=== PATIENT | female | born 1960 | race Caucasian/White ===

== ENCOUNTER 2019-03-02 05:29 | Day surgery (SDC) | payer OTHER ==
--- NOTE | 2019-03-01 16:39 | GHP ---
[f rep st] PRE-OP HISTORY AND PHYSICAL The patient presented to [facility] initially back in 2005 with bilateral bunion deformities. She has had a bunion correction done previously on her left foot and has developed a severe bunion deformity on the right foot and wants this taken care of, along with a crossover 2nd hammertoe. She is generally in very good health. 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 Currently she is ___58 years of age. She is fully ambulatory. She does have hemochromatosis. Enjoys cycling, walking for exercise. The toe has gotten severely painful on that right side wanted it taken care of on a permanent basis. We have tried orthotics, change in shoes, decreased activity, all of which have helped her for over the years, but at this point, her goal is to retire and live an active lifestyle after her senior care. PAST MEDICAL HISTORY: Significant for the hemochromatosis. ALLERGIES: She cannot do iron, Vicodin causes nausea. Outside of that, no other drug allergies. SOCIAL HISTORY: She has been a tobacco user/smoker. She denies excessive alcohol use. FAMILY HISTORY: No family history of unusual health problems. A positive family history of bunion deformity, maternal side. PAST SURGICAL HISTORY: She has had fibroid tumor removed, bunion surgery on the left without complication or problems to anesthesia. At this point, she wants a similar procedure done on the right. At her preop appointment, we discussed her condition in detail. PHYSICAL EXAM: She had normal vascular status 2/4 dorsal and posterior tibial arteries. Capillary fill less than 5 seconds to digits x10. Neurologic evaluation sharp, dull, light touch proprioception all intact and symmetric to the digital level. Skin shows normal temperature texture turgor. Normal hair distribution with pinch callusing on the medial aspect of the right great toe, consistent with a bunion deformity. She has a medially deviated 1st metatarsal , laterally deviated hallux with a significant crepitation and pain when placed in a corrected position on her right great toe joint. She has a subluxed 2nd metatarsophalangeal joint which is manually reducible, consistent with a hammer digit deformity on the 2nd toe on the right. X-RAYS: Were taken, show severe metatarsus adductus with hallux valgus deformity and hammertoe 2nd cross over, all right foot. The concern here is with the met adductus, we can only correct it so far. She understands that with the C-shaped foot that she has, that the bunion correction will definitely realign the great toe and help with the function better, but with all her metatarsals abducted dramatically, we can only close the intermetatarsal angle so far. She understands her mechanics. ASSESSMENT: Hallux valgus deformity right with hammertoe 2nd right. PLANNED PROCEDURE: 1. Modified Knutson bunionectomy with osteotomy screw fixation. 2. Guanako osteotomy screw fixation. 3. Modified post arthroplasty with extensor tendon lengthening, 2nd toe. At her preop appointment, we discussed risks and complications including residual pain, delayed healing. Patient understood, consent form was signed. She was given both oral and written postop instructions along with a prescription for pain medication. She was given my cell phone number for 24-hour call should she have any problems or questions and she will be followed up x3 days postop at [facility]. /[id number]/MODL MTDD
[2019-03-02] MEDS ORDERED: LIDOCAINE 1% 2 ML INJ ID PRN (06:06)
[2019-03-02] MEDS ORDERED: LR 1,000 ML IV ONE (06:06)
[2019-03-02] MEDS ORDERED: LIDOCAINE 1% 2 ML INJ ONE (06:26)
--- NOTE | 2019-03-02 06:52 | PDANEPAE ---
ANE Past Medical History - Cardiovascular History Hx Hypertension: No Hx Arrhythmias: No Hx Chest Pain: No Hx Coronary Artery / Peripheral Vascular Disease: No Hx CHF / Valvular Disease: No Hx Palpitations: No - Pulmonary History Hx COPD: No Hx Asthma/Reactive Airway Disease: No Hx Recent Upper Respiratory Infection: No Hx Oxygen in Use at Home: No Hx Sleep Apnea: No Sleep Apnea Screening Result - Last Documented: Negative - Neurologic History Hx Cerebrovascular Accident: No Hx Seizures: No Hx Dementia: No - Endocrine History Hx Diabetes: No - Renal History Hx Renal Disorders: No - Liver History Hx Hepatic Disorders: No - Neurological & Psychiatric Hx Hx Neurological and Psychiatric Disorders: No - Cancer History Hx Cancer: No - Congenital Disorder History Hx Congenital Disorders: No - GI History Hx Gastrointestinal Disorders: No - Other Health History Other Health History: NONE - Chronic Pain History Chronic Pain: Yes (RT FOOT) - Surgical History Prior Surgeries: LT BUNION 2009. TONSILLECTOMY. REMVL UTERINE FIBROID ANE Review of Systems Review of Systems: - Exercise capacity METS (RN): 4 METS ANE Patient History - Allergies Allergies/Adverse Reactions: hydrocodone [From Vicodin] Allergy (Verified 02/22/19 18:00) VIOLENT JERKING - Home Medications Home Medications: NK [No Known Home Meds] 02/22/19 [Last Taken Unknown] - NPO status NPO Since - Liquids (Date): 03/01/19 NPO Since - Liquids (Time): 23:30 NPO Since - Solids (Date): 03/01/19 NPO Since - Solids (Time): 19:30 - Smoking Hx Smoking Status: Heavy smoker ANE Labs/Vital Signs - Vital Signs Blood Pressure: 112/79 Heart Rate: 72 Respiratory Rate: 18 O2 Sat (%): 94 Height: 168.91 cm Weight: 55.338 kg ANE Physical Exam - Airway Neck exam: FROM Mallampati Score: Class 1 Mouth exam: normal dental/mouth exam - Pulmonary Pulmonary: clear to auscultation - Cardiovascular Cardiovascular: regular rate and rhythym - ASA Status ASA Status: I ANE Anesthesia Plan Anesthesia Plan: GA w LMA, MAC
[2019-03-02] MEDS ORDERED: MIDAZOLAM 2 MG/2 ML VIAL IVP ONE (06:57)
[2019-03-02] MEDS ORDERED: fentaNYL 100 MCG/2 ML INJ ONE (07:02)
[2019-03-02] MEDS ORDERED: PROPOFOL/EMULSION 500 MG/50 ML BOTTLE IV ONE (07:03)
[2019-03-02] MEDS ORDERED: ceFAZolin 1 GM/5 ML SYR ONE (07:07)
[2019-03-02] MEDS ORDERED: LIDOCAINE 1% 5 ML SDV ONE (07:07)
[2019-03-02] MEDS ORDERED: BUPIVACAINE 0.25% 30 ML SDV ONE (07:07)
[2019-03-02] MEDS ORDERED: ceFAZolin 2 GM/DEXTROSE 100 ML IV ONE (07:09)
[2019-03-02] MEDS ORDERED: CEFAZOLIN 2 GM/DEXTROSE/100 ML BAG IV ONE (07:09)
[2019-03-02] MEDS ORDERED: PROPOFOL 200 MG/20 ML VIAL ONE (08:35)
[2019-03-02] MEDS ORDERED: fentaNYL 100 MCG/2 ML INJ IVP PRN (08:39)
[2019-03-02] MEDS ORDERED: HYDROmorphONE/DILAUDID 1 MG/ML INJ IVP PRN (08:39)
[2019-03-02] MEDS ORDERED: PROMETHAZINE HCL 25 MG/ML INJ IVP PRN (08:39)
[2019-03-02] MEDS ORDERED: METOCLOPRAMIDE 10 MG/2 ML VIAL IVP PRN (08:39)
[2019-03-02] MEDS ORDERED: DEXAMETHASONE 4 MG/ML VIAL IVP PRN (08:39)
[2019-03-02] MEDS ORDERED: NALOXONE HCL 0.4 MG/ML INJ IVP PRN (08:39)
[2019-03-02] MEDS ORDERED: ACETAMINOPHEN 500 MG TAB PO PRN (08:39)
[2019-03-02] MEDS ORDERED: ONDANSETRON 4 MG/2 ML VIAL IVP PRN (08:39)
[2019-03-02] MEDS ORDERED: LR 500 ML IV PRN (08:39)
[2019-03-02] MEDS ORDERED: oxyCODONE IR 5 MG TAB PO PRN (08:39)
[2019-03-02] MEDS ORDERED: DIAZEPAM 10 MG/2 ML SYR IVP PRN (08:39)
--- NOTE | 2019-03-02 09:59 | POSTANESTH ---
Post Anesthetic Evaluation Cardiovascular Status: Normal, Stable Respiratory Status: Normal, Stable Level of Consciousness/Mental Status: Can Participate in Eval Pain Control: Adequate, Prn Tx Ordered Nausea/Vomiting Control: Adequate, Prn Tx Ordered Complications Possibly Related to Anesthesia: None Noted
[2019-03-02 10:50] VITALS: BP 125/73
--- NOTE | 2019-03-02 12:32 | GOP ---
[f rep st] OPERATIVE REPORT DATE OF OPERATION: 03/02/2019 SURGEON: Jay Fields DPM MARKETING REP: There were no assistants in the case. PREOPERATIVE DIAGNOSIS: 1. Hallux valgus deformity, right foot. 2. Hammertoe second toe, right foot. POSTOPERATIVE DIAGNOSIS: 1. Hallux valgus deformity, right foot. 2. Hammertoe second toe, right foot. PROCEDURE PERFORMED: 1. Modified Knutson bunionectomy with osteotomy screw fixation, right foot. 2. Guanako osteotomy with screw fixation, right foot. 3. Tenotomy capsulotomy, second toe, right foot. FINDINGS: SPECIMENS: No specimens were sent to Pathology. ESTIMATED BLOOD LOSS: Less than 10 mL. DESCRIPTION OF PROCEDURE: The patient was taken the operating room, placed in a supine position. Af ter local and MAC anesthesia, a total of approximately 15 mL of 0.5% Marcaine plain were placed in a Hawkins block, as well as a digital block for the second toe. The right foot was then elevated, prepped and draped in the usual sterile OR fashion, achieving a sterile field about the entire distal aspect of the extremity. Attention was directed to the right foot. After elevation and exsanguination, tourniquet was inflate d to 225 mmHg. Total tourniquet time was just under 1 hour. At this point, attention was directed t o the great toe on the right side. A longitudinal medial incision was done over the great toe just m edial to the extensor hallucis longus tendon. Dissection was carried down to the level of the joint capsule, taking care to preserve the neurovascular status to the area. The first intermetatarsal spa ce was entered via sharp and blunt dissection. The adductor tendon was identified and released sharp ly from its attachments into the base of the proximal phalanx. This tendon was tagged for later solano sfer into the lateral aspect of the first metatarsal head. At this point, the joint was entered via a capsular incision dorsally. The distal third of the periosteum, as well as the capsule on the meta tarsal, was reflected medially and laterally. A small bony prominence was noted over the medial aspe ct of the first metatarsal head, and this was removed utilizing a bone saw. A 035 K-wire was then pl aced through the metaphysis of the metatarsal, orienting the K-wire such that it would slightly plant ar flex the metatarsal. The metatarsal head was then osteotomized. A V osteotomy was carried out wi th a slightly elongated dorsal wing. The metatarsal head or capital fragment was then shifted latera lly, impacted upon itself, and held temporarily with the same 035 K-wire as temporary fixation. Util izing AO technique, a single 2.4 fully-threaded Osteomed screw was placed through the dorsal wing of the osteotomy and retrograded back into the metatarsal with excellent compression noted intraoperativ yolanda. Redundant bone was removed medially off the first metatarsal head and rasped smooth utilizing a rotary bur. The K-wire was removed from the operative site. At this point, the great toe was taken through range of motion, and it was deemed necessary to do a secondary procedure, which was an Guanako osteotomy with screw fixation. At this point, a linear incision was extended over the dorsal aspect of the proximal phalanx. The pe riosteum was reflected medially and laterally. At this point, an oblique wedge osteotomy was carried out with the apex proximal and lateral on the wedge. This wedge of bone was removed from the operat june site. A fracture reduction clamp was used to close the osteotomy, which swung the great toe away from the second toe. Utilizing this clamp as temporary fixation, 2 parallel 2.4 mm Osteomed screws were then placed from proximal medial to distal lateral perpendicular to the osteotomy site, again ut ilizing AO technique. Good compression was noted intraoperatively once the screws were placed. The fracture reduction clamp was then removed. The osteotomies were checked for good fixation and were r igid internally. At this point, the great toe was taken through a range of motion, deemed to be calvin omically aligned. The area was flushed copiously with dilute antibiotic solution. The capsule was reapproximated utili zing 3-0 Vicryl in a simple interrupted suture. Periosteum was reapproximated utilizing 4-0 Vicryl i n a simple interrupted and horizontal mattress suture. Subcu closure was carried out via 4-0 Vicryl in a horizontal mattress suture, and skin closure was carried out via 4-0 Prolene in a running subcut icular stitch. The incision was reinforced with Mastisol and Steri-Strips. At this point, attention was directed to the dorsal aspect of the second metatarsophalangeal joint. A linear incision was made from the second MTPJ distally into the proximal interphalangeal joint of t he second toe, again taking care to preserve the neurovascular status to the area and all superficial vessels were clamped and bovied as necessary. The capsule was then identified. The extensor tendon was identified and a Z-lengthening was carried out over the extensor tendon. This immediately dropp ed the toe back into a more anatomic alignment. It was deemed necessary to do a lateral capsular rel ease at the second metatarsophalangeal joint laterally to assure that the toe would move medially and be held there adequately for normal anatomic alignment. Once this was carried out, the toe remained in a good anatomic alignment and parallel to the third and fourth toes. The area was flushed copiously with dilute antibiotic solution. Deep closure was carried out via 3-0 Vicryl in a simple interrupted suture, subcu closure was carried out via 4-0 Vicryl in a horizontal mattress suture, and skin closure was carried out via 4-0 Prolene in a running subcuticular stitch. The incision was reinforced with Mastisol and Steri-Strips. Adaptic, sterile 4x4s, Cheli, and Coban were utilized as a dressing, and gentle compression was utilized intraoperatively. Tourniquet was re leased just under 1 hour. All digits immediately returned to uniform pink color with normal capillar y refill. Patient went into recovery in a satisfactory state with all vital signs stable. Her prognosis is patricia y good for rapid recovery. She will be followed up x3 days postop at [facility] . COMPLICATIONS: There were no complications. DRAINS PLACED: No drains were placed into the operative site. /[id number]/MODL
== END 2019-03-02 11:05 | disposition home or self-care (01) ==
LOC: FSGY 05:29
PROVIDERS: ATTEND Podiatrist
PROC: 0QBQ0ZZ Excision of Right Toe Phalanx, Open Approach (ICD-10-PCS; principal; 2019-03-02 07:15)
PROC: 0QTQ0ZZ Resection of Right Toe Phalanx, Open Approach (ICD-10-PCS; principal; 2019-03-02 07:15)
PROC: 0SNM0ZZ Release Right Metatarsal-Phalangeal Joint, Open Approach (ICD-10-PCS; principal; 2019-03-02 07:15)
DX: M21.611 Bunion of right foot (principal); M20.11 Hallux valgus (acquired), right foot; M20.41 Other hammer toe(s) (acquired), right foot
CPT/HCPCS: C1713; J0690; J2250; J2704; J3010